=== PATIENT | female | born 1975 | race Caucasian/White ===

== ENCOUNTER 2020-03-27 06:00 | Inpatient (IN) | payer OTHER, SELFPAY ==
[~2020-03-27] VITALS: Ht 134.6 cm; Wt 56.7 kg
[2020-03-27 06:29] LABS: HCG,QUAL RESULT NEGATIVE (NEGATIVE)
[2020-03-27] MEDS ORDERED: cefOXitin SODIUM 2 GM in D5W 100 ML IV ONE (06:45)
[2020-03-27] MEDS ORDERED: IBUP-1971 PO (07:43)
[2020-03-27] MEDS ORDERED: KETOROLAC TROMETHAMINE 30 MG VIAL IVP PRN (07:45)
[2020-03-27] MEDS ORDERED: HYDROmorphone 2 MG TAB PO PRN (07:45)
[2020-03-27] MEDS ORDERED: OXYCODONE/ACETAMINOPHEN 5-325 TABLET PO PRN (07:45)
[2020-03-27] MEDS ORDERED: METOCLOPRAMIDE HCL 10 MG/2 ML VIAL IVP PRN ×2 (08:00→11:00)
[2020-03-27] MEDS ORDERED: NALOXONE HCL 0.4 MG/ML AMP (NARCAN) IVP PRN ×2 (08:00→09:45)
[2020-03-27] MEDS ORDERED: KETOROLAC TROMETHAMINE 30 MG VIAL IM PRN (08:00)
[2020-03-27] MEDS ORDERED: ACETAMINOPHEN 500 MG TABLET PO ONE (08:00)
[2020-03-27 08:41] VITALS: BP_SYST 123
[2020-03-27] MEDS ORDERED: LR 1,000 ML IV.SOLN IV ONE (08:50)
[2020-03-27] MEDS ORDERED: ROCURONIUM BROMIDE 10 MG/ML (ZEMURON) ONE (08:50)
[2020-03-27] MEDS ORDERED: SUCCINYLCHOLINE CHLORIDE 20 MG/ML(QUELICIN) ONE (08:50)
[2020-03-27] MEDS ORDERED: ATROPINE SULFATE 0.4 MG/ML VIAL ONE (08:50)
[2020-03-27] MEDS ORDERED: ONDANSETRON HCL 4 MG/2 ML VIAL ONE (08:50)
[2020-03-27] MEDS ORDERED: fentaNYL CITRATE/PF 100 MCG/2 ML AMP ONE (08:50)
[2020-03-27] MEDS ORDERED: SEVOFLURANE 15 MIN GAS INH ONE (08:50)
[2020-03-27] MEDS ORDERED: PROPOFOL 200MG/ 20ML VIAL (DIPRIVAN) IV ONE (08:50)
[2020-03-27] MEDS: HYDROmorphone 1 MG INJ. 1 MG/ML AMPUL IVP PRN ×2 (08:51→09:08)
[2020-03-27] MEDS ORDERED: HYDROmorphone 1 MG INJ. 1 MG/ML AMPUL ONE (09:11)
[2020-03-27] MEDS ORDERED: HYDROMORPHONE PCA 10 mg/50 mL IV PRN (09:45)
[2020-03-27] MEDS: KETOROLAC TROMETHAMINE 30 MG VIAL IM SCH ×2 (10:00→17:35)
[2020-03-27] MEDS ORDERED: LR 1,000 ML IV SCH (11:00)
[2020-03-27] MEDS: SIMETHICONE 80 MG TAB.CHEW PO PRN (20:02)
[2020-03-27] MEDS ORDERED: TEMAZEPAM 15 MG CAPSULE PO PRN (21:00)
[2020-03-28] MEDS: KETOROLAC TROMETHAMINE 30 MG VIAL IM SCH (02:00)
[2020-03-28 07:49] LABS: BASOPHILS % (AUTO) 0.4 % (0.0-2.0); EOSINOPHILS # (AUTO) 0.2 K/uL (0.0-0.4); EOSINOPHILS % (AUTO) 2.5 % (0.0-4.0); HEMATOCRIT 24.5 % (36-48); HEMOGLOBIN 7.5 g/dL (12.0-16.0); LYMPHOCYTES % (AUTO) 26.5 % (20.5-51.5); MEAN CORPUSCULAR HEMOGLOBIN 21 pg (27-31); MEAN CORPUSCULAR HGB CONC 31 % (32-36); MEAN CORPUSCULAR VOLUME 67 fL (79.0-98.0); MONOCYTES # (AUTO) 0.7 K/uL (0.0-1.0); MONOCYTES % (AUTO) 9.5 % (1.7-9.3); NEUTROPHILS # (AUTO) 4.6 K/uL (1.8-7.7); NEUTROPHILS % (AUTO) 61.1 % (40.0-70.0); PLATELET COUNT (AUTO) 227 K/uL (130-430); RED BLOOD CELL COUNT(AUTO) 3.63 MIL/uL (4.2-6.2); RED CELL DISTRIBUTION WIDTH 18.9 % (9.0-15.0); WHITE BLOOD COUNT (AUTO) 7.5 K/uL (4.8-10.8)
[2020-03-28] MEDS: DOCUSATE SODIUM 100 MG CAPSULE PO PRN ×2 (10:20→20:30)
[2020-03-28] MEDS: SIMETHICONE 80 MG TAB.CHEW PO PRN (15:14)
[2020-03-28] MEDS: IBUPROFEN 800 MG TABLET PO PRN (15:14)
[2020-03-28] MEDS: OXYCODONE/ACETAMINOPHEN 5-325 TABLET PO PRN (15:15)
[2020-03-29] MEDS: IBUPROFEN 800 MG TABLET PO PRN (06:20)
[2020-03-29] MEDS: SIMETHICONE 80 MG TAB.CHEW PO PRN (08:52)
[2020-03-29] MEDS: OXYCODONE/ACETAMINOPHEN 5-325 TABLET PO PRN (08:53)
== END 2020-03-29 09:50 | disposition home or self-care (01) | DRG 743 ==
LOC: SMU 06:00 → EDUNIT# 07:30 → SPU 10:29
PROVIDERS: ADMIT Obstetrics & Gynecology; ATTEND Obstetrics & Gynecology
PROC: 0UT90ZL Resection of Uterus, Supracervical, Open Approach (ICD-10-PCS; principal; 2020-03-27 08:30)
DX: D25.9 Leiomyoma of uterus, unspecified (principal); N92.0 Excessive and frequent menstruation with regular cycle; Z20.828 Contact with and (suspected) exposure to other viral communicable diseases
CPT/HCPCS: 36415; 84703; 85025; 86886; 86900; 86901; 87081; 88305; J0330; J0461; J0694; J1170; J1885; J2405; J2704; J3010; J7060; J7120; U0003-CS